=== PATIENT | female | born 1950 | race Caucasian/White ===

== ENCOUNTER 2018-12-12 09:15 | Day surgery (SDC) | payer MEDICARE ==
[~2018-12-12] VITALS: Ht 170.2 cm; Wt 74.8 kg
[~2018-12-12 09:15] MED LIST: ACEBUTCAFT PO; ACET500 PO; CHANTIX; ESTR2 PO; MEDR2.5 PO; MELO7.5 PO; NAPR220 PO; OXYACE5T PO; OXYACE7.5T PO; PROM25 PO; ZESTORETIC 20-121 EA PO; [UNRECOGNIZED DRUG - OTHER]
[2018-12-12] MEDS ORDERED: TEMA30 (09:52)
== END 2018-12-12 11:21 | disposition home or self-care (01) ==
LOC: ORSCSDS 09:15
PROVIDERS: Internal Medicine Gastroenterology
PROC: 0DJD8ZZ Inspection of Lower Intestinal Tract, Via Natural or Artificial Opening Endoscopic (ICD-10-PCS; principal; 2018-12-12 10:45)
DX: Z12.11 Encounter for screening for malignant neoplasm of colon (principal); K57.30 Diverticulosis of large intestine without perforation or abscess without bleeding; I10 Essential (primary) hypertension; F17.210 Nicotine dependence, cigarettes, uncomplicated; Z79.899 Other long term (current) drug therapy
CPT/HCPCS: J2704; J7120